=== PATIENT | female | born 1970 | race African-American/Black ===

== ENCOUNTER 2016-12-15 22:43 | Emergency (ER) | payer OTHER ==
[~2016-12-15] VITALS: Ht 162.6 cm; Wt 102.0 kg
--- NOTE | ~2016-12-15 | CT2 ---
[facility] A Service of [facility] RADIOLOGY TEXT RESULTS PATIENT: HEBER HEADLEY LOCATION: SED : 66 UNIT #: [id number] AGE: [address]: Kraig Sexton MD SEX: F ORDER DR: [id number] [place] [id number] E MR#: [id number] Acc #: [id number] NAME: HEBER HEADLEY : 1970 SEX: F STUDY DATE/TIME: 12/16/2016 01:19 UNIT: SED ROOM: STUDY DESCRIPTION: CT Abd and Pelv W Cont Attending Physician: Kraig Sexton M.D. Ordering Physician: Kraig Sexton M.D. Primary Care Physician: Anais Diaz MEDICAL IMAGING REPORT This report is preliminary unless electronic signature is present. EXAM CT abdomen and pelvis 12/16/2016 at 01:19 INDICATION Back pain radiating to the lower abdomen over the last 5 days. Pain rates 10 out of 10 currently. TECHNIQUE Axial images were obtained through the abdomen and pelvis following IV contrast administration. Multiplanar reformats were obtained. No comparison. This CT examination was performed with one or more of the following radiation dose reduction techniques: automatic exposure control, adjustment of mA and/or kV according to patient size, and iterative reconstruction. FINDINGS ABDOMEN: The lung bases are clear. Gallbladder is contracted. No biliary obstruction is seen. Solid organs are normal. No free fluid or adenopathy identified. Unopacified GI tract grossly normal. PELVIS: Urinary bladder is normal. Solid pelvic organs are normal. The appendix is normal as well. Remainder of the unopacified GI tract is normal. No free fluid. IMPRESSION 1. Normal CT of the abdomen and pelvis. 2. Normal unopacified GI tract, including the appendix. 3. Normal nonobstructed kidneys. Dictated by... Jones Snow Jr., M.D. [facility] A Service of [facility] RADIOLOGY TEXT RESULTS PATIENT: HEBER HEADLEY LOCATION: SED : 66 UNIT #: [id number] AGE: [address]: Kraig Sexton MD SEX: F ORDER DR: THIS IS AN ELECTRONICALLY VERIFIED REPORT Jones Snow Jr., M.D. at 12/17/2016 5:52 AM RADHA/trinh TD: 12/16/2016 10:22 JOB #: [id number] MEDICAL IMAGING REPORT Page 1 of 1
[~2016-12-15 22:43] MED LIST: BACTRIM DS TABL1 TA1 PO; DICLOFENAC PO; DIFLUCAN PO; GLUCOPHAGE500 MG; GLUCOPHAGE500 MG PO; INVOKANA; ZESTRIL5 MG PO
[2016-12-15] MEDS ORDERED: ZANTAC (23:01)
[2016-12-15] MEDS ORDERED: ZYRTEC10 M1 (23:01)
[2016-12-15 23:31] LABS: URINE SOURCE CLEAN CATCH
[2016-12-15 23:33] LABS: URINE APPEARANCE CLEAR; URINE BILIRUBIN NEG (NEG); URINE BLOOD NEG (NEG); URINE COLOR YELLOW; URINE GLUCOSE NEG (NORM); URINE KETONE TRACE (NEG); URINE LEUKOCYTE ESTERASE NEG (NEG); URINE NITRATE NEG (NEG); URINE PROTEIN NEG (NEG); URINE SPECIFIC GRAVITY >=1.030 (1.003-1.035); URINE UROBILINOGEN 0.2 MG/DL (NORM)
[2016-12-15 23:35] LABS: MICRO INDICATED? NO
[2016-12-15 23:43] LABS: BASOPHIL# 0.1 X10e3 (0-0.3); BASOPHIL% 0.9 % (0-2.5); EOSINOPHIL# 0.2 X10e3 (0-0.7); HEMATOCRIT 38.9 % (35.0-45.0); HEMOGLOBIN 12.6 gm/dL (12.0-16.0); LYMPHOCYTE# 2.8 X10e3 (1.0-3.5); LYMPHOCYTE% 37.5 % (17.0-45.0); MEAN CELL VOLUME 72.5 FL (83-96); MEAN CORPUSCULAR HEMOGLOBIN 23.5 PG (28-34); MEAN CORPUSCULAR HGB CONC 32.4 g/dL (30-36); MEAN PLATELET VOLUME 8.9 FL (6.5-11.5); MONOCYTE# 0.4 X10e3 (0-1.0); MONOCYTE% 5.7 % (3.0-12.0); NEUTROPHIL% 52.9 % (40-75); PLATELET COUNT 228 X10e3 (140-420); RED BLOOD COUNT 5.36 X10e (3.90-5.30); RED CELL DISTRIBUTION WIDTH 15.5 % (11.0-15.5); WHITE BLOOD COUNT 7.6 X10e3 (4.0-10.5)
[2016-12-15 23:48] LABS: DIFF IND NO
[2016-12-16 00:02] LABS: ALBUMIN SERUM 3.6 g/dL (3.5-5.0); BILIRUBIN, DIRECT 0.2 mg/dL (0.0-0.2); BILIRUBIN,TOTAL 0.2 mg/dL (0.2-2.0); BUN/CREATININE RATIO 12.5; CREATININE SERUM 0.8 mg/dL (0.6-1.4); GLOM FILT RATE Estimated 101.1 mL/min (>60); POTASSIUM 4.2 mmol/L (3.5-5.1); PROTEIN TOTAL SERUM 6.5 g/dL (6.0-8.3)
== END 2016-12-16 02:14 | disposition home or self-care (01) ==
LOC: SED 22:43
PROVIDERS: Emergency Medicine
DX: R10.9 Unspecified abdominal pain (principal); R11.0 Nausea; R03.0 Elevated blood-pressure reading, without diagnosis of hypertension; M54.9 Dorsalgia, unspecified; F17.210 Nicotine dependence, cigarettes, uncomplicated; Z79.899 Other long term (current) drug therapy
CPT/HCPCS: 36415; 74177; 80048; 80076; 81003; 83690; 85025; 96374; 96375; 99284; J1885; J2270; Q9967

== ENCOUNTER 2016-12-22 21:49 | Emergency (ER) | payer OTHER ==
[~2016-12-22] VITALS: Ht 165.1 cm; Wt 102.0 kg
[~2016-12-22 21:49] MED LIST changes: +ZANTAC; +ZYRTEC10 M1
== END 2016-12-22 23:12 | disposition home or self-care (01) ==
LOC: SED 21:49
DX: M54.41 Lumbago with sciatica, right side (principal); E11.9 Type 2 diabetes mellitus without complications; I10 Essential (primary) hypertension; F17.200 Nicotine dependence, unspecified, uncomplicated; Z79.899 Other long term (current) drug therapy
CPT/HCPCS: 99283

== ENCOUNTER 2017-01-05 21:27 | Emergency (ER) | payer OTHER ==
[~2017-01-05] VITALS: Ht 165.1 cm; Wt 102.0 kg
== END 2017-01-06 00:45 | disposition home or self-care (01) ==
LOC: SED 21:27
DX: L02.412 Cutaneous abscess of left axilla (principal); E11.9 Type 2 diabetes mellitus without complications; I10 Essential (primary) hypertension; K21.9 Gastro-esophageal reflux disease without esophagitis; F17.200 Nicotine dependence, unspecified, uncomplicated
CPT/HCPCS: 10060; 87070; 87205; 99283